=== PATIENT | female | born 1955 | race American Indian/Alaskan Native ===

== ENCOUNTER 2018-05-30 14:06 | Emergency (ER) | payer MEDICARE, OTHER ==
[2018-05-30 14:24] VITALS: BMI 26.9
[2018-05-30 14:34] VITALS: BP 156/98; PULSE 82; RESP 18; TEMP 98; O2SAT 98
== END 2018-05-30 14:34 | disposition left against medical advice (07) ==
LOC: ED 14:06
DX: Z02.89 Encounter for other administrative examinations (principal); R10.9 Unspecified abdominal pain

== ENCOUNTER 2018-11-21 06:39 | Emergency (ER) | payer MEDICARE, OTHER ==
[2018-11-21 06:48] VITALS: BMI 27.4
[2018-11-21 06:55] VITALS: TEMP 98.5
--- NOTE | 2018-11-21 07:35 | ED PDOC ---
Arrival/HPI - General Chief Complaint: Back Pain Time Seen by Provider: 11/21/18 07:04 Historian: Patient - History of Present Illness Narrative History of Present Illness (Text): 11/21/18 07:37 63 year old female, whose past medical history includes hypertension, diabetes, asthma, COPD, dementia, seizures, arthritis, gastritis,herniated disks, appendectomy, and cholecystecotomy, presents to the emergency department complaining of back pain and urinary incontinence for the past couple of days. Patient notes a "hard" pain on the right side of her back for the past few days which has progressively worsened. Patient states she experiences abdominal pain when she urinates. She denies fevers, chills, headache, dizziness, chest pain, shortness of breath, dyspnea on exertion, cough, nausea, vomiting, diarrhea, neck pain, or any other complaint. PMD: Dr. Jara Time/Duration: < week Symptom Onset: Gradual Symptom Course: Unchanged Activities at Onset: Light Context: Home Past Medical History - Provider Review Nursing Documentation Reviewed: Yes - Infectious Disease Hx of Infectious Diseases: None - Cardiac Hx Hypertension: Yes - Pulmonary Hx Asthma: Yes Hx Chronic Obstructive Pulmonary Disease (COPD): Yes Hx Emphysema: Yes - Neurological Hx Dementia: Yes Hx Seizures: Yes - HEENT Hx HEENT Disorder: Yes Hx Difficulty Chewing: Yes Other/Comment: glasses - Renal Hx Renal Disorder: No - Endocrine/Metabolic Hx Endocrine Disorders: Yes Hx Diabetes Mellitus Type 2: Yes - Hematological/Oncological Hx Anemia: No - Integumentary Hx Dermatological Disorder: No - Musculoskeletal/Rheumatological Hx Arthritis: Yes - Gastrointestinal Hx Gastritis: Yes - Genitourinary/Gynecological Hx Sexually Transmitted Diseases: No - Psychiatric Hx Anxiety: Yes Hx Depression: No Hx Schizophrenia: No Hx Substance Use: No - Surgical History Hx Appendectomy: Yes Hx Cholecystectomy: Yes - Anesthesia Hx Anesthesia: Yes Hx Anesthesia Reactions: No Hx Malignant Hyperthermia: No - Suicidal Assessment Feels Threatened In Home Enviroment: No Family/Social History - Physician Review Nursing Documentation Reviewed: Yes Family/Social History: No Known Family HX Smoking Status: Light Smoker < 10 Cigarettes Daily Hx Alcohol Use: No Hx Substance Use: No Substance used: HEROIN Allergies/Home Meds Allergies/Adverse Reactions: Allergies No Known Allergies Allergy (Verified 11/19/18 15:22) Home Medications: Home Meds Medication Instructions Recorded Confirmed Atorvastatin [Lipitor] 20 mg PO DAILY 08/20/18 11/19/18 Review of Systems - Physician Review All systems were reviewed & negative as marked: Yes - Review of Systems Respiratory: absent: SOB Cardiovascular: absent: Chest Pain Physical Exam - Physical Exam Narrative Physical Exam (Text): 11/21/18 07:46 Constitutional: No acute distress. Head: Normocephalic. Atraumatic. Eyes: PERRL. ENT: Moist mucous membranes. Neck: Supple. Cardiovascular: Regular rate. Chest: No tenderness. Respiratory: Clear to auscultation bilaterally. GI: Suprapubic tenderness, no rebound, no guarding, Nondistended. Back: lumbar perispinal tenderness, no midline tenderness, old lumbar surgical scar, Musculoskeletal: No tenderness or swelling of extremities. Skin: No rash. Neurologic: Alert, no focal deficit.motor intact at baseline, snesation to light touch intact in lower areas and saddle area Vital Signs Reviewed: Yes Vital Signs Temp Pulse Resp BP Pulse Ox 11/21/18 06:40 98.5 F 81 16 167/88 H 100 Temperature: Afebrile Blood Pressure: Hypertensive Pulse: Regular Respiratory Rate: Normal Appearance: Positive for: Well-Appearing, Non-Toxic, Comfortable Pain Distress: None Mental Status: Positive for: Alert and Oriented X 3 Medical Decision Making ED Course and Treatment: 11/21/18 07:50 Impression: 63 year old female who presents to the emergency department complaining of right sided back pain and urinary incontinence. Plan: -- EKG -- Labs -- Torafol -- Urinalysis -- Urine culture -- Reassess and disposition Prior Visits: Notes and results from previous visits were reviewed. Progress Notes: EKG reviewed by me, shows: NSR at 76bpm with no ST elevations. UTI on Urinalysis. Culture sent. No midline vertebral tenderness. Discharged home, follow up pmd, instructed to return to emergency department for worsening pain, fever, vomiting, dyspnea, or any other problem. - Lab Interpretations I have reviewed the lab results: Yes - EKG Interpretation Interpreted by ED Physician: Yes Type: 12 lead EKG - Medication Orders Current Medication Orders: Discontinued Medications Ketorolac Tromethamine (Toradol) 30 mg IM STAT STA Stop: 11/21/18 07:30 - Scribe Statement The provider has reviewed the documentation as recorded by the Carlyle Chaney Provider Scribe Attestation: All medical record entries made by the Carlyel were at my direction and personally dictated by me. I have reviewed the chart and agree that the record accurately reflects my personal performance of the history, physical exam, medical decision making, and the department course for this patient. I have also personally directed, reviewed, and agree with the discharge instructions and disposition. Disposition/Present on Arrival - Present on Arrival Any Indicators Present on Arrival: No History of DVT/PE: No History of Uncontrolled Diabetes: No Urinary Catheter: No History of Decub. Ulcer: No History Surgical Site Infection Following: None - Disposition Have Diagnosis and Disposition been Completed?: Yes Diagnosis: Low back strain, UTI (urinary tract infection) Disposition: HOME/ ROUTINE Disposition Time: 09:30 Patient Plan: Discharge Condition: STABLE Discharge Instructions (ExitCare): Low Back Pain (DC), Urinary Tract Infection, Adult (DC) Prescriptions: Ibuprofen [Motrin] 600 mg PO Q6 #25 tab levoFLOXacin [Levaquin] 1 tab PO DAILY #7 tab Phenazopyridine [Pyridium] 1 tab PO Q8 #6 tab Forms: [employer] ([employer]ami)
[2018-11-21 07:41] LABS: BASO # 0.03 K/mm3 (0.0-2.0); BASO % 0.4 % (0.0-3.0); EOS # 0.3 (0.0-0.7); EOS % 3.5 % (1.5-5.0); HEMOGLOBIN 11.7 g/dL (12.0-16.0); LYMPH # 3.1 (1.2-3.4); LYMPH % 40.2 % (22.0-35.0); MEAN CORPUSCULAR HEMOGLOBIN 27.7 pg (25.0-35.0); MEAN CORPUSCULAR HGB CONC 33.3 g/dl (31.0-37.0); MEAN PLATELET VOLUME 11.4 fl (7.0-11.0); MONO # 0.7 (0.1-0.6); MONO % 8.3 % (1.0-6.0); RBC 4.23 10^6/uL (3.5-6.1); WHITE BLOOD COUNT 7.8 10^3/uL (4.5-11.0)
[2018-11-21 07:43] LABS: ALB/GLOB RATIO 1.2 (1.1-1.8)
[2018-11-21 07:49] LABS: ALBUMIN 3.9 g/dL (3.0-4.8); ALT/SGPT 38 U/L (7-56); AST/SGOT 47 U/L (14-36); BLOOD UREA NITROGEN 8 mg/dL (7-21); CALCIUM 9.6 mg/dL (8.4-10.5); GFR NON-AFRICAN AMERICAN > 60; LIPASE 95 U/L (23-300)
[2018-11-21 08:15] LABS: URINE BILIRUBIN NEGATIVE (NEGATIVE); URINE BLOOD NEGATIVE (NEGATIVE); URINE GLUCOSE (UA) NEGATIVE (NEGATIVE); URINE LEUKOCYTE ESTERASE TRACE Leu/uL (NEGATIVE); URINE PROTEIN NEGATIVE mg/dL (<30 mg/dL); URINE UROBILINOGEN 0.2 E.U./dL (<1 E.U./dL)
[2018-11-21 08:17] LABS: URINE APPEARANCE CLEAR (CLEAR); URINE COLOR YELLOW (YELLOW)
[2018-11-21] MEDS ORDERED: Alum-Mag Hydrox-Simethicone Susp (30 mL) PO STA (08:32)
[2018-11-21 08:43] LABS: URINE BACTERIA MOD /hpf; URINE RBC 0 - 2 /hpf (0-2)
[2018-11-21 09:56] VITALS: BP 150/63; PULSE 76; RESP 18; O2SAT 96
--- NOTE | 2018-11-21 10:38 | CARD ---
APPROVED REPORT Date of service: 11/21/2018 EKG Measurement Heart [id number] <Conclusion> Normal sinus rhythm Septal infarct, age undetermined Abnormal ECG
== END 2018-11-21 10:00 | disposition home or self-care (01) ==
LOC: ED 06:39
DX: S39.012A Strain of muscle, fascia and tendon of lower back, initial encounter (principal); X58.XXXA Exposure to other specified factors, initial encounter; N39.0 Urinary tract infection, site not specified; I10 Essential (primary) hypertension; E11.9 Type 2 diabetes mellitus without complications; F17.210 Nicotine dependence, cigarettes, uncomplicated
CPT/HCPCS: 80053; 81001; 82948; 83690; 85025; 87086; 93005; 96372; 99283; J1885